=== PATIENT | female | born 1970 ===

== ENCOUNTER → 2023-07-18 12:24 | Outpatient (CLI) | payer MEDICARE, OTHER, SELFPAY ==
--- NOTE | ~2023-07-18 | MR_ITS ---
EXAMINATION: MR thoracic spine wo con DATE: 07/18/2023 14:42 INDICATION: Back pain. TECHNIQUE: Magnetic resonance imaging (MRI) of the thoracic spine was performed without intravenous c ontrast. COMPARISON: None FINDINGS: There is 5 degrees levocurvature of cervicothoracic spine. There is mild chronic anterior w edging of T7-T11 vertebral bodies. There is mildly decreased disc height from T5-T6 through T9-T10 an d at T11-T12. At T3-T4, there is a right central protrusion with mild central canal stenosis. There i s multilevel mild facet joint osteoarthritis. No neural foraminal stenosis. IMPRESSION: 1. Mild thoracic spondylosis. Reviewed, dictated and finalized at location E.
--- NOTE | ~2023-07-18 | MR_ITS ---
EXAMINATION: MR lumbar spine wo con DATE: 07/18/2023 14:42 INDICATION: Age-related osteoporosis with current pathological fracture. TECHNIQUE: Magnetic resonance imaging (MRI) of the lumbar spine was performed without intravenous con trast. COMPARISON: None FINDINGS: There is 3 mm anterolisthesis of L4 on L5. There are changes of posterior fusion procedure at L4-L5 with pedicle screws. There are mildly decreased disc height at L4-L5. The distal spinal cord signal intensity is normal. The conus medullaris is at L1. The following disc levels are specificall y discussed: L1-L2: There is a left foraminal protrusion. There is mild bilateral facet joint osteoarthritis. Ther e is mild left neural foraminal stenosis. There is no central canal stenosis. L2-L3: The disc is mildly bulging. There is moderate bilateral facet joint osteoarthritis. There is m ild bilateral neural foraminal stenosis. There is mild central canal stenosis. L3-L4: The disc is mildly bulging. There is severe bilateral facet joint osteoarthritis. There is mil d bilateral neural foraminal stenosis. There is mild central canal stenosis. L4-L5: The disc does not extend beyond the endplate margin. There is ankylosis of the facet joints wi th severe hypertrophy. There is mild bilateral neural foraminal stenosis. There is mild central canal stenosis. L5-S1: The disc is bulging. There is severe bilateral facet joint osteoarthritis. There is mild bilat eral neural foraminal stenosis. There is mild central canal stenosis. IMPRESSION: 1. Mild lumbar spondylosis. 2. Posterior fusion procedure at L4-L5. Reviewed, dictated and finalized at location E.
== END ==
PROVIDERS: PCP Family Medicine; Visit Provider Physician Assistant
DX: M80.08XA Age-related osteoporosis with current pathological fracture, vertebra(e), initial encounter for fracture (principal); M96.1 Postlaminectomy syndrome, not elsewhere classified
CPT/HCPCS: 72146; 72148